=== PATIENT | male | born 1995 | race Caucasian/White ===

== ENCOUNTER 2016-08-05 21:13 | Emergency (ER) | payer OTHER ==
[~2016-08-05] VITALS: Ht 190.5 cm; Wt 88.6 kg
[2016-08-05 21:14] VITALS: BP 136/73; RESP 16; O2SAT 100
--- NOTE | 2016-08-05 21:19 | ED.REPORT ---
HPI-Ear Pain/Problem/FB Date of Service Aug 05, 2016 ED Provider: Clarke De Souza MD Pt is a healthy 20 year old male who presents to the ED with complaints of a left sided earache that started a couple of hours ago. He described this pain as a dull, deep aching that has been worsening since its onset. Pt denies any discharge from this ear, or any ringing, but admits to mild hearing loss on the left side. He reports a recent illness, consisting of rhinorrhea, cough and sore throat. Pt denies any headache, fever, or any other symptoms. Nursing Notes Stated Complaint: EAR ACHE Chief Complaint: ENT & Mouth Nursing Notes Reviewed: Yes Allergies: Coded Allergies: No Known Allergies (Unverified , 08/05/16) General Time Seen by MD: 21:16 Chief Complaint Ear problem left Hx Obtained From: Patient Arrived By: Walk-in Onset Occurred: 5 - 8 hours ago Symptom Duration: Since onset Quality: Painful Severity: Current: Mild Severity: Maximum: Moderate Similar Sx Previous: Yes Past Medical History Past Medical History Healthy Ambulatory Status Independent Review of Systems Constitutional: Denies: Chills, Fever, Malaise Ears / Nose / Throat: Reports: Earache left, Hearing loss left Complete sys rev & neg: except as marked. Physical Exam Initial Vital Signs Vital Signs (First) Date Time Temp Pulse Resp B/P Pulse Ox O2 Delivery O2 Flow Rate FiO2 08/05/16 21:14 37.0 73 16 136/73 100 Room Air Initial VS: Reviewed, Vital signs normal Head / Eyes: Atraumatic, Normocephalic, PERRL Neck: Supple, Non-tender, Full range of motion Respiratory: Breath sounds normal, Clear to auscultation, No respiratory distress Cardiovascular: Regular rate & rhythm, Heart sounds normal, Intact distal pulses Skin: Warm, Dry, No cyanosis Neurologic: Alert, Oriented, Nonfocal General/Constitutional: Awake, Alert, No acute distress, Well appearing, Well developed, Well nourished, Cooperative ENT: Airway patent, Pharynx NL No mastoid tenderness Left TM appears largely infected, with mild thickening, and minimal erythema Right TM clear Small amount of blood mucoid in the left nares Conjunctival erythema in the left eye Re-Eval/Medical Decision Med Decision/Clinical Course Typical progression from URI to left otitis media. No evidence of more serious bacterial infection. Afrin and amoxicillin given. Source of Hx: Old records Re-Evaluation/Progress : Time of Eval: 21:55 Re-Evaluation/Progress Note: Pt is rechecked and informed of his diagnosis and the plan to discharge him at this time. He understands and agrees, all questions are addressed. Counseled Regarding: Diagnosis, Need for follow-up, When/why to return to ED Discharge & Departure Primary Impression: Otitis media Otitis media type: suppurative Laterality: left Chronicity: acute Recurrence: not specified Spontaneous tympanic membrane rupture: without spontaneous rupture Qualified Code: H66.002 - Acute suppurative otitis media without spontaneous rupture of ear drum, left ear Disposition: Home Discharge Condition All VS Reviewed: Yes Condition: Stable Patient Instructions: Otitis Media (ED) Additional Instructions: Afrin (oxymetazoline) nasal spray, one spray in each nostril 3 times a day for 3 days. Amoxicillin 500 mg by mouth 3 times a day for 10 days, #30 dispensed. He also may use an [id number] cold medication containing pseudoephedrine or phenylephrine decongestants. Recheck in 2-3 days if not improving. Referrals: Blank Aranda MD (PCP) Silvana Attestation Portions of this note were transcribed by Anai Nam. I, Dr. De Souza personally performed the history, physical exam and medical decision-making; I reviewed and confirmed the accuracy of the information in the transcribed note. Signed by: Silvana Vizcaino, 08/05/2016 21:48 copies to: Blank Aranda MD, Howard L MD Aug 05, 2016 21:18 JUVE NAM Aug 05, 2016 21:20
[2016-08-06] MEDS ORDERED: _Amoxicillin 500 mg Capsule PO SCH (08:30)
== END 2016-08-05 22:07 | disposition home or self-care (01) ==
LOC: SED 21:13
DX: H66.002 Acute suppurative otitis media without spontaneous rupture of ear drum, left ear (principal)

== ENCOUNTER 2016-08-14 17:51 | Emergency (ER) | payer OTHER ==
[~2016-08-14] VITALS: Ht 190.5 cm; Wt 88.6 kg
[2016-08-14 18:09] VITALS: BP 109/66; PULSE 54; RESP 12; O2SAT 99
--- NOTE | 2016-08-14 19:03 | ED.REPORT ---
HPI-Back Pain Under 40 Date of Service Aug 14, 2016 ED Provider: Hesham Mendez MD Pt is a 20 y.o. male who presents to the ED accompanied by his mother c/o gradually worsening left upper back pain onset 1 week ago. Pt states that he was leaning against a desk and sneezed when his back pain started. He reports hearing a "pop" today when he reached for his seatbelt and felt extreme pain. He denies numbness, weakness, tingling, fever, and chills. Pt states that he has been taking ibuprofen for pain. He reports worsening pain with deep inspiration and movement. Nursing Notes Stated Complaint: UPPER BACK PAIN Chief Complaint: Back Pain or Injury Nursing Notes Reviewed: Yes Allergies: Coded Allergies: No Known Allergies (Unverified , 08/05/16) Scheduled PRN Cyclobenzaprine (Cyclobenzaprine) 5 Mg Tablet 5 MG PO HS PRN PRN Spasm General Time Seen by MD: 18:22 Chief Complaint Back pain Hx Obtained From: Patient Arrived By: Walk-in Sudden in Onset?: Yes Onset Occurred: 1 week ago Symptom Duration: Since onset Caused by: Spontaneous/no mechanism Location: : Spinal thoracic area Quality: Painful Radiation: : Does not radiate Severity: Current: Mild Severity: Maximum: Severe Past Medical History Past Medical History Healthy Past Surgical History None reported Ambulatory Status Independent Review of Systems Constitutional: Denies: Chills, Fever, Weakness - generalized Musculoskeletal: Reports: Back pain Neurologic: Denies: Numbness Complete sys rev & neg: except as marked. Physical Exam Initial Vital Signs Vital Signs (First) Date Time Temp Pulse Resp B/P Pulse Ox O2 Delivery O2 Flow Rate FiO2 08/14/16 18:09 36.7 54 12 109/66 99 08/14/16 19:59 Room Air Initial VS: Reviewed Head / Eyes: Atraumatic, Normocephalic Abdomen / GI: No distention Extremities: Vascular intact, Neuro intact Skin: Warm, Dry, No cyanosis Psychiatric: Mood/affect normal, Behavior normal, Normal thought content General/Constitutional: Awake, Alert, No acute distress, Well appearing, Well developed, Well hydrated, Well nourished, Not toxic appearing Back: Atraumatic Flank / Spine / Paraspinal: Positive: Thorac paraspinal tend... (High, upper left lateral) Neurologic: Oriented X3, Speech NL, No motor deficits Strength 5/5 in all extremities Respiratory / Chest: Atraumatic, Breath sounds NL, Breath sounds = bilat, No respiratory distress, No rales, No rhonchi, No wheezing, No retractions, No stridor Cardiovascular: Heart rate NL, Regular rhythm, Heart sounds NL, No gallop, No murmurs, No rubs, Peripheral circulation NL Re-Eval/Medical Decision Med Decision/Clinical Course In summary, the patient is a healthy 20-year-old male with no significant past medical history who presents with back pain after sneezing. Our primary and secondary assessment reveals an awake, alert patient in no acute distress. Hemodynamically stable and afebrile. Exam reveals normal neurologic exam of the lower extremities. He has good bilateral breath sounds and no clinical evidence of pneumothorax. Given this immunocompetent, afebrile, patient's history and exam, suspect muscle strain or spasm. No concerning signs or symptoms suggestive of cauda equina, cord compression, epidural abscess or other neurologic emergency. History not suggestive of referred intraabdominal pathology or vascular emergency. There is no history of significant trauma, fever, incontinence, unexplained weight loss, cancer history, long-term steroid use or IV drug use. And given the patient's young age, I do not feel imaging is warranted at this time. Given the patient's workup, feel they are safe for discharge with conservative management. The patient was given cyclobenzaprine for symptom control while here in the ER. He will continue ibuprofen and ice packs/hot packs. Have discussed with the patient results of workup, indications for return including: motor weakness in the lower extremities and/or bowel or bladder incontinence. Also emphasized the need for PCP follow up. They understand and agree with the plan. Re-Evaluation/Progress : Time of Eval: 19:31 Re-Evaluation/Progress Note: Physical exam performed. Discussed plan for discharge, pt understands and agrees with plan. Counseled Regarding: Diagnosis Discharge & Departure Impression: Primary Impression: Muscle spasm of back Additional Impression: Upper back pain Disposition: Home All VS Reviewed: Yes Condition: Stable Additional Instructions: You were seen here today for muscle spasm/sprain. Alternate heat packs and ice packs. If your stomach feels fine you can continue taking ibuprofen for another week. I will prescribe you a muscle relaxer, do not drive while taking this medication, I recommend you take it at night. Refrain from heaving lifting. Continue gentle stretching. If you have not improved in another week I recommend you make a follow-up appointment with your primary care provider. Return if you have difficulty breathing, numbness, tingling, or any new or worsening symptoms. Referrals: NOPCP (PCP) [facility] Silvana Attestation Portions of this note were transcribed by Sapphire Holloway. I, Dr. Mendez personally performed the history, physical exam and medical decision-making; I reviewed and confirmed the accuracy of the information in the transcribed note. Signed by: Silvana Talbot, 08/14/16 and 2052. copies to: [facility] Hesham Mendez MD Aug 14, 2016 19:03 SAPPHIRE HOLLOWAY Aug 14, 2016 19:38
[2016-08-14] MEDS ORDERED: CYCL5TAB PO (19:41)
[2016-08-14 19:59] VITALS: BP 126/72; PULSE 56; RESP 16; O2SAT 100
== END 2016-08-14 19:59 | disposition home or self-care (01) ==
LOC: SED 17:51
DX: M62.830 Muscle spasm of back (principal); M54.6 Pain in thoracic spine